=== PATIENT | male | born 1960 | race Caucasian/White ===

== ENCOUNTER → 2023-08-19 07:43 | Outpatient (REF) | payer OTHER, SELFPAY | LOC: DHCBC/DCA 07:43 | PROVIDERS: ATTENDING PHYSICIAN Internal Medicine Interventional Cardiology; FAMILY PHYSICIAN Internal Medicine | DX: I25.10 Atherosclerotic heart disease of native coronary artery without angina pectoris (principal); I10 Essential (primary) hypertension; I25.2 Old myocardial infarction | CPT/HCPCS: 78452; 93017; A9500; J2785 ==

== ENCOUNTER → 2023-09-22 06:26 | Day surgery (SDC) | payer OTHER, SELFPAY | LOC: GI 06:26 | PROVIDERS: ATTENDING PHYSICIAN Specialist; FAMILY PHYSICIAN Internal Medicine | DX: Z12.11 Encounter for screening for malignant neoplasm of colon (principal); Z86.010 Personal history of colon polyps; K63.5 Polyp of colon | CPT/HCPCS: 45380; 88305 ==

== ENCOUNTER → 2023-12-03 10:19 | Outpatient (REF) | payer OTHER, SELFPAY | LOC: HWRAD 10:19 | PROVIDERS: ATTENDING PHYSICIAN Internal Medicine | DX: M54.2 Cervicalgia (principal) | CPT/HCPCS: 72050 ==

== ENCOUNTER 2024-02-02 06:00 | Day surgery (SDC) | payer OTHER, SELFPAY ==
--- NOTE | 2024-01-27 16:19 | VNURNOTE ---
Patient is scheduled for an elective L TKA on 02/02/24- he is a same day patient. Potential to stay overnight. Spoke with patient prior to surgery. Introduced role of [facility] liaison.
Patient reports that he lives alone. He will be staying at his daughter's and son in law's house in [place] post-op.
There is one step to enter and a first floor set up with bathroom.
He currently functions independently. He has a cane and rolling walker.
He has never had [facility] services.
PCP is Dr Antonio Esteves.
Discussed orthopedic program and post surgical plans.
Reviewed that he will have V[facility] services initially and will then start outpatient PT.
Patient selects [facility]N for his home care needs and will go to [facility] for outpatient PT.
Spoke with Hilaria Clemente who called patient after this author to reinforce plan and tentative [facility] schedule post-op.
Patient is in agreement with plan and states that his daughter and son-in-law will be home with him.
Referral placed in [facility]. Notified [facility] pipe joints supervisor Catherine of SDS/potential for 23hr OBS.
Plan: [facility] then outpt PT at [facility]
[2024-02-02] VITALS (17 sets, daily range): BP systolic 100–166; BP diastolic 60–89; PULSE 57; O2SAT 95; BMI 38.8
[2024-02-02] MEDS: NORMOSOL-R/PLASMALYTE-A 1000 IV ×2 (06:42→09:46)
[2024-02-02] MEDS: TYLENOL 650 MG PO ×5 (06:42→23:23)
[2024-02-02] MEDS: CELEBREX 200 MG PO (06:42)
[2024-02-02] MEDS: ROXICODONE 5 MG PO ×2 (09:18→13:48)
[2024-02-02] MEDS: DILAUDID 0.5 MG IV ×3 (10:44→21:03)
[2024-02-02] MEDS: COREG PO (11:05)
[2024-02-02] MEDS: COZAAR PO (11:05)
[2024-02-02] MEDS: ZOLOFT 100 MG PO (11:08)
[2024-02-02] MEDS: ZETIA 10 MG PO (11:08)
[2024-02-02] MEDS: FLOMAX 0.4 MG PO (11:11)
--- NOTE | 2024-02-02 11:47 | SUR.PHASEI ---
patient in pacu post op, vss, monitor SB to NSR with rare PVC, medicated x2 for pain 11/16 with relief - pain down to 3 - more tourniquet pain than knee pain. alert oriented - responsive to teaching, daughter to visit briefly in pacu - aware of
room delays
--- NOTE | 2024-02-02 11:56 | PTCARENOTE ---
Pt arrived to [facility] [address] from PACU s/p L TKR. Pt AAOx3, NV intact, IVF infusing, L knee dressing with scant amount of drainage, TEDS and foot pumps in place. Pt oriented to call xiao and room, bed locked and in lowest position, call xiao within reach.
--- NOTE | 2024-02-02 13:08 | W.PN.ORTHO ---
Today's Communication / Plan
-
D/c when clinically stable
Assessment
.
Distal Motor Intact: Yes
Dressing:
Clean, dry and intact.
Assessment:
L knee OA s/p L TKA w/ Dr Maynard 02/02/24
DVT prophylaxis - ASA, b/l venous foot pumps
HTN - + parameters - monitor BP
CAD/NSTEMI complicated by V fib arrest, 2017, s/p ostial-mid LAD and LCx stent - monitor on tele
- Continue ASA but at 325 mg dosing for DVT prophylaxis
WEI per sleep study 2018 (in [employer]) - monitor O2
- Add supplemental O2 HS
- IS
BPH - add daily Flomax - monitor voids
Mild pre-op anemia - non-invasive H&H in AM
Obesity, BMI 38.8 - would benefit from Cefdroxil upon d/c
Hypercholesterolemia
Colon polyps
Fatty liver disease
DDD
Depression
Plan
.
Surgery / Date: L TKA w/ Dr Maynard 02/02/24
DVT Prophylaxis: Aspirin
Activity:
Out of bed.
PT/OT
Discharge Plan: Home w/ VN
Subjective
.
.:
Patient resting comfortably in bed.
Reports minor L thigh pain 2* tourniquet use in OR; otherwise, he appears comfortable.
Denies any new significant complaints.
Vital Signs and Labs
.
Vital Signs and Labs:
Temp Pulse Resp BP Pulse Ox
97.1 F 55 16 127/70 96
02/02/24 08:09 02/02/24 09:00 02/02/24 09:00 02/02/24 09:00 02/02/24 09:30
Physical Exam
-
HEENT: No pallor, cyanosis, or jaundice. Throat clear.
NECK: Supple. No JVD.
RESPIRATORY: Lungs clear to auscultation.
CVS: S1, S2 normal. RRR.�
ABDOMEN: Soft, non-tender. No distension. Obese.
EXTREMITIES: Strength equal, no calf pain with palpation/dorsiflexion. Calves soft.
OVEN DAUBER: AOx3. No focal deficits. casing cooker grossly intact
[2024-02-02] MEDS: LIDOCAINE 4% PATCH 1 PATCH TOPICAL (13:49)
[2024-02-02] MEDS: ANCEF 5 IV ×2 (14:03→21:12)
[2024-02-02] MEDS: ASPIRIN 325 MG PO (17:49)
[2024-02-02] MEDS: ROXICODONE 10 MG PO ×2 (17:49→23:23)
[2024-02-02] MEDS: LIPITOR 80 MG PO (17:49)
[2024-02-02] MEDS: BACTROBAN 2% OINTMENT 1 APPLIC NASAL (21:08)
[2024-02-02] MEDS: SENOKOT 17.2 MG PO (21:08)
[2024-02-02] MEDS: DECADRON 4 MG PO (21:08)
[2024-02-02] MEDS: PEPCID 20 MG PO (21:08)
[2024-02-02] MEDS: COLACE 100 MG PO (21:08)
[2024-02-02] MEDS: COREG 3.125 MG PO (21:11)
[2024-02-03] MEDS: DILAUDID 0.5 MG IV (00:44)
[2024-02-03] MEDS: ROXICODONE 5 MG PO (02:16)
[2024-02-03 03:05] VITALS: BP 165/72
[2024-02-03] MEDS: TYLENOL 650 MG PO ×3 (03:21→11:48)
[2024-02-03 04:25] VITALS: BP 132/79
[2024-02-03] MEDS: ROXICODONE 10 MG PO (05:55)
[2024-02-03 07:10] VITALS: BP 155/78
[2024-02-03] MEDS: BACTROBAN 2% OINTMENT 1 APPLIC NASAL (08:33)
[2024-02-03] MEDS: LIDOCAINE 4% PATCH TOPICAL (08:34)
[2024-02-03] MEDS: CELEBREX 200 MG PO (08:34)
[2024-02-03] MEDS: COLACE 100 MG PO (08:34)
[2024-02-03] MEDS: ASPIRIN 325 MG PO (08:34)
[2024-02-03] MEDS: COREG 3.125 MG PO (08:35)
[2024-02-03] MEDS: FLOMAX 0.4 MG PO (08:35)
[2024-02-03] MEDS: COZAAR 50 MG PO (08:35)
[2024-02-03] MEDS: DECADRON 4 MG PO (08:35)
[2024-02-03] MEDS: ZETIA 10 MG PO (08:36)
[2024-02-03] MEDS: SENOKOT 17.2 MG PO (08:36)
[2024-02-03] MEDS: ZOLOFT 100 MG PO (08:36)
[2024-02-03 11:10] VITALS: BP 135/77
--- NOTE | 2024-02-03 12:18 | CM ---
Met with pt at bedside
Pt reports he lives alone in an apartment. At discharge plans to stay with his daughter and son-in-law. 2 story home; 1 step to enter with FF set-up
Reports active, independent, driving at baseline
DME - shower chair, rolling walker, single point cane, quad cane
SNF/HH - no past hx
Has ride at discharge
PCP - Raudel Esteves
Pharm - [facility]
Has appt on Wednesday for [facility]ptpatient PT at [facility] - has Rx
Plan - home with ouptpatient PT
--- NOTE | 2024-02-03 13:00 | W.PN.ORTHO ---
Today's Communication / Plan
-
D/c today since clinically stable, did well w/ PT and OT.
Assessment
.
Distal Motor Intact: Yes
Dressing:
Scant old incisional bleeding.
Assessment:
L knee OA s/p L TKA w/ Dr Maynard 02/02/24
DVT prophylaxis - ASA, b/l venous foot pumps
HTN - + parameters - BPs overall stable
CAD/NSTEMI complicated by V fib arrest, 2017, s/p ostial-mid LAD and LCx stent - maintaining NSR on tele
- Continue ASA but at 325 mg dosing for DVT prophylaxis
WEI per sleep study 2019 (in [employer]) - O2 stable
- Added supplemental O2 HS
- IS
BPH - add daily Flomax - voiding appropriately by POD 1
Mild pre-op anemia - non-invasive H&H 13.1 POD 1
Obesity, BMI 38.8 - would benefit from Cefdroxil upon d/c
Hypercholesterolemia
Colon polyps
Fatty liver disease
DDD
Depression
Plan
.
Surgery / Date: L TKA w/ Dr Maynard 02/02/24
DVT Prophylaxis: Aspirin
Activity:
Out of bed.
PT/OT
Discharge Plan: Home w/ Outpatient PT
Subjective
.
.:
Patient examined resting in bed this AM.
L knee pain overnight - Oxycodone switched to Dilaudid prn.
Denies any new significant complaints.
Eager for potential d/c today.
Vital Signs and Labs
.
Vital Signs and Labs:
Temp Pulse Resp BP Pulse Ox
97.7 F 66 18 135/77 96
02/03/24 11:10 02/03/24 11:10 02/03/24 11:10 02/03/24 11:10 02/03/24 11:10
Non-invasive Hgb result: 13.1
Physical Exam
-
HEENT: No pallor, cyanosis, or jaundice. Throat clear.
NECK: Supple. No JVD.
RESPIRATORY: Lungs clear to auscultation.
CVS: S1, S2 normal. RRR.�
ABDOMEN: Soft, non-tender. No distension. Obese.
EXTREMITIES: Strength equal, no calf pain with palpation/dorsiflexion. Calves soft.
SOIL CONSERVATION TEACHER: AOx3. No focal deficits. data security administrator grossly intact
--- NOTE | 2024-02-03 13:16 | W.DS.TRANS ---
DC Summary - [employer]
-
Discharge Instructions:
Sleep Apnea Risk High
Discharge Diagnosis/Procedures L knee OA s/p L TKA w/ Dr Maynard 02/02/24
Diet Other diet
Additional Diets Diabetic carb controlled x1 week for wound
healing/infection prevention
Activity As tolerated,With Walker
Driving Restrictions Not until seen by your Dr
Bathing Restrictions OK to Shower
Other Services PT
Wound Care Dressing to be removed 1 week post-surgery.
Instructions:
Stand-Alone Forms: Total Hip/Knee Replacement D/C
Changes to Home Medications: Yes
Discharge Medications:
DC Medications w/original date entered in [facility]
atorvastatin 80 mg tablet 80 mg PO QPM #30 tabs 10/19/16
carvedilol 3.125 mg tablet 3.125 mg PO BID #60 tabs 10/19/16
nitroglycerin 0.4 mg sublingual tablet 0.4 mg sublingual Q5MX3 PRN chest pain 06/24/22
ezetimibe 10 mg tablet (Zetia) 10 mg PO DAILY 01/28/24
Saccharomyces boulardii 250 mg capsule (Florastor) 250 mg PO BID #7 caps 02/03/24
acetaminophen 500 mg tablet 1,000 mg (2 x 500 mg) PO Q6H #60 tabs 02/03/24
aspirin 325 mg tablet 325 mg PO DAILY #30 tabs 02/03/24
cefadroxil 500 mg capsule 500 mg PO DAILY #7 caps 02/03/24
celecoxib 100 mg capsule 100 mg PO BID #30 caps 02/03/24
dexamethasone 4 mg tablet 4 mg PO Q12H #7 tabs 02/03/24
docusate sodium 100 mg capsule 100 mg PO BID #30 caps 02/03/24
famotidine 20 mg tablet 20 mg PO HS #30 tabs 02/03/24
hydromorphone 2 mg tablet 2 - 4 mg (1 - 2 x 2 mg) PO Q4H PRN moderate-severe pain #30 tabs 02/03/24
lidocaine 4 % topical patch 2 patch topical DAILY #30 ea 02/03/24
losartan 50 mg tablet 50 mg PO DAILY Blood pressure #1 tab 02/03/24
ondansetron HCl 4 mg tablet 4 mg PO Q6H PRN nausea and vomiting #0 tabs 02/03/24
sennosides 8.6 mg tablet (Senna Laxative) 17.2 mg (2 x 8.6 mg) PO BID #30 tabs 02/03/24
sertraline 100 mg tablet 100 mg PO DAILY Mental Health/Anxiety #0 tabs 02/03/24
Home Medication Changes
Saccharomyces boulardii 250 mg capsule (Florastor) 250 mg PO BID #7 caps 02/03/24
acetaminophen 500 mg tablet 1,000 mg (2 x 500 mg) PO Q6H #60 tabs 02/03/24
aspirin 325 mg tablet 325 mg PO DAILY #30 tabs 02/03/24
cefadroxil 500 mg capsule 500 mg PO DAILY #7 caps 02/03/24
celecoxib 100 mg capsule 100 mg PO BID #30 caps 02/03/24
dexamethasone 4 mg tablet 4 mg PO Q12H #7 tabs 02/03/24
docusate sodium 100 mg capsule 100 mg PO BID #30 caps 02/03/24
famotidine 20 mg tablet 20 mg PO HS #30 tabs 02/03/24
hydromorphone 2 mg tablet 2 - 4 mg (1 - 2 x 2 mg) PO Q4H PRN moderate-severe pain #30 tabs 02/03/24
lidocaine 4 % topical patch 2 patch topical DAILY #30 ea 02/03/24
ondansetron HCl 4 mg tablet 4 mg PO Q6H PRN nausea and vomiting #0 tabs 02/03/24
sennosides 8.6 mg tablet (Senna Laxative) 17.2 mg (2 x 8.6 mg) PO BID #30 tabs 02/03/24
Pending Results: No
== END 2024-02-03 14:03 | disposition home health service (06) ==
LOC: SDS 06:00
PROVIDERS: ATTENDING PHYSICIAN Orthopaedic Surgery
DX: M17.12 Unilateral primary osteoarthritis, left knee (principal); I10 Essential (primary) hypertension; I25.2 Old myocardial infarction; D64.9 Anemia, unspecified; E66.9 Obesity, unspecified; Z68.38 Body mass index [BMI] 38.0-38.9, adult
CPT/HCPCS: 27447; 73560; 97110; 97116; 97162; 97166; 97530; 97535; C1713; C1776

== ENCOUNTER → 2024-03-08 10:56 | Outpatient (REF) | payer OTHER, SELFPAY | LOC: RAD 10:56 | PROVIDERS: ATTENDING PHYSICIAN Physician Assistant; FAMILY PHYSICIAN Internal Medicine; OTHER PHYSICIAN Internal Medicine Interventional Cardiology | DX: M79.662 Pain in left lower leg (principal) | CPT/HCPCS: 93971 ==

== ENCOUNTER → 2024-08-24 10:25 | Outpatient (REF) | payer OTHER, SELFPAY | LOC: WDC 10:25 | PROVIDERS: ATTENDING PHYSICIAN Internal Medicine | DX: N62 Hypertrophy of breast (principal) | CPT/HCPCS: 76642; 77062; 77066 ==

== ENCOUNTER → 2024-09-20 09:26 | Outpatient (REF) | payer OTHER, SELFPAY | LOC: HWRAD 09:26 | PROVIDERS: ATTENDING PHYSICIAN Internal Medicine | DX: N62 Hypertrophy of breast (principal); E22.1 Hyperprolactinemia | CPT/HCPCS: 70450 ==

== ENCOUNTER → 2024-10-06 09:20 | Outpatient (REF) | payer OTHER, SELFPAY | LOC: MRI 09:20 | PROVIDERS: ATTENDING PHYSICIAN Internal Medicine; REFERRING PHYSICIAN Internal Medicine Interventional Cardiology | DX: E23.6 Other disorders of pituitary gland (principal); N62 Hypertrophy of breast; E22.1 Hyperprolactinemia | CPT/HCPCS: 70553; A9575 ==

== ENCOUNTER → 2024-11-09 14:32 | Outpatient (REF) | payer OTHER, SELFPAY | LOC: DHSLP 14:32 | PROVIDERS: ATTENDING PHYSICIAN Internal Medicine; FAMILY PHYSICIAN Internal Medicine | DX: G47.33 Obstructive sleep apnea (adult) (pediatric) (principal); G47.61 Periodic limb movement disorder; G47.00 Insomnia, unspecified | CPT/HCPCS: 95810 ==

== ENCOUNTER → 2025-02-13 13:00 | Outpatient (REF) | payer OTHER, SELFPAY | LOC: HWRCS 13:00 | PROVIDERS: ATTENDING PHYSICIAN Internal Medicine Interventional Cardiology; FAMILY PHYSICIAN Internal Medicine | DX: I25.2 Old myocardial infarction (principal) | CPT/HCPCS: 93306 ==